=== PATIENT | male | born 1955 | race Asian ===

== ENCOUNTER 2020-09-25 10:12 | Day surgery (SDC) | payer OTHER ==
[2020-09-23 11:17] LABS: BASOPHILS % (AUTO) 1 % (0-1); EOSINOPHILS % (AUTO) 3 % (1-7); LYMPHOCYTES % (AUTO) 20 % (22-44); MEAN CORPUSCULAR HEMOGLOBIN 31.1 pg (27.5-34.5); MEAN CORPUSCULAR HGB CONC 33.4 g/dL (33.2-36.2); MEAN PLATELET VOLUME 6.9 fL (7.4-10.4); MONOCYTES % (AUTO) 11 % (2-9); NEUTROPHILS % (AUTO) 66 % (42-75); PLATELET COUNT 597 x10^3/uL (130-400); RED BLOOD COUNT 3.98 x10^6/uL (4.38-5.82); RED CELL DISTRIBUTION WIDTH 14.7 % (9.4-14.8)
[2020-09-23 11:20] LABS: MD NO
[2020-09-23 11:22] LABS: ALANINE AMINOTRANSFERASE 30 U/L (12-78); ALBUMIN 3.6 g/dL (3.4-5.0); ANION GAP 4 mmol/L (5-15); CALCIUM 9.5 mg/dL (8.5-10.1); CHLORIDE 106 mmol/L (98-107)
[2020-09-23 11:23] LABS: INTERNATIONAL NORMALIZED RATIO 0.95 (0.93-1.1); PROTHROMBIN TIME 10.2 Seconds (9.6-11.5)
[2020-09-23 11:25] LABS: ALKALINE PHOSPHATASE 117 U/L (45-117); BILIRUBIN,TOTAL 0.3 mg/dL (0.2-1.0); CREATININE 5.38 mg/dL (0.7-1.3); TOTAL PROTEIN 7.6 g/dL (6.4-8.2)
[~2020-09-25] VITALS: Ht 162.6 cm; Wt 56.9 kg
[~2020-09-25 10:12] MED LIST: ACETAMINOPHEN 325 MG TABLET PO PRN; AMLO-211 PO; ATOR80TA PO; BUPIVACAINE/PF 0.5% ONE; CHOL10003 PO; EMPA25TA PO; EPHEDRINE 50 MG/ML, 1ML IVPush PRN; FENTANYL PF 100 MCG/2ML IV PRN; GABA300C PO; GLIM2TAB7 PO; HEPARIN 1,000 UNITS/ML, 10ML ONE; HEPARIN 5,000 UNITS/ML, 1ML ONE; HYDROmorphone 1 MG/ML, 1ML INJ IVPush PRN; INSU300I SC; LABETALOL 5MG/ML, 20ML IV PRN; LOSA50TA14 PO; ONDANSETRON 2MG/ML, 2ML IVPush PRN; OXYcodone 5 MG/5 ML ORAL.SOL UDC PO PRN; PROMETHAZINE 25 MG/ML, 1ML IVPush PRN; hydrALAzine 20 MG/ML, 1ML IV PRN
[2020-09-25 10:22] VITALS: BP 134/86
[2020-09-25] MEDS ORDERED: CHLORHEXIDINE 15 ML UDC ONE (10:27)
[2020-09-25] MEDS ORDERED: CHLORHEXIDINE 15 ML UDC PO ONE (10:30)
[2020-09-25] MEDS ORDERED: SODIUM CHLORIDE 0.9% 1,000 ML IV SCH (10:30)
[2020-09-25 11:16] LABS: CALCIUM 9.2 mg/dL (8.5-10.1); CHLORIDE 109 mmol/L (98-107)
[2020-09-25 11:22] LABS: ALANINE AMINOTRANSFERASE 27 U/L (12-78); ALBUMIN 3.7 g/dL (3.4-5.0); ALKALINE PHOSPHATASE 77 U/L (45-117); ANION GAP 6 mmol/L (5-15); BILIRUBIN,TOTAL 0.6 mg/dL (0.2-1.0); CREATININE 5.58 mg/dL (0.7-1.3); TOTAL PROTEIN 7.8 g/dL (6.4-8.2)
[2020-09-25] MEDS ORDERED: MIDAZOLAM 1 MG/ML, 2ML ONE (12:51)
[2020-09-25] MEDS ORDERED: CEFAZOLIN 1,000 MG ONE ×2 (12:51)
[2020-09-25] MEDS ORDERED: SODIUM CHLORIDE 0.9% PF 10ML ONE (12:51)
[2020-09-25] MEDS ORDERED: hydrALAzine 20 MG/ML, 1ML ONE (12:51)
== END 2020-09-25 15:45 | disposition home or self-care (01) ==
LOC: OUT 10:12
PROVIDERS: ATTEND Surgery
DX: E11.22 Type 2 diabetes mellitus with diabetic chronic kidney disease (principal); I12.0 Hypertensive chronic kidney disease with stage 5 chronic kidney disease or end stage renal disease; N18.6 End stage renal disease; G89.18 Other acute postprocedural pain; E78.5 Hyperlipidemia, unspecified; Z20.822 Contact with and (suspected) exposure to COVID-19; Z79.899 Other long term (current) drug therapy; Z87.891 Personal history of nicotine dependence; Z83.3 Family history of diabetes mellitus
CPT/HCPCS: 36415; 36821; 64415; 71046; 80053; 82962; 85025; 85610; 85730; 93005; J0360; J0690; J1644; J2250; J7030; U0003